=== PATIENT | male | born 1970 | race Caucasian/White ===

== ENCOUNTER 2016-12-07 18:48 | Inpatient (IN) | payer MEDICARE, OTHER ==
[2016-12-07 18:55] VITALS: BP 97/53; PULSE 88; RESP 20; TEMP 98.1; O2SAT 95
[2016-12-07] MEDS ORDERED: SODIUM CHLORIDE 0.9% FLUSH 10 ML FLUSH IVF PRN (19:00)
[2016-12-07] MEDS ORDERED: HYDROmorphone HCL PF 1 MG/ML VIAL IV PUSH ONE ×2 (19:00→21:15)
[2016-12-07] MEDS ORDERED: ONDANSETRON HCL 4 MG/2 ML VIAL IV PUSH ONE (19:00)
[2016-12-07] MEDS ORDERED: BENI5TAB4 PO (19:06)
[2016-12-07] MEDS ORDERED: AMPH1TAB29 PO (19:06)
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
[2016-12-07 19:28] VITALS: RESP 20; O2SAT 90
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
[2016-12-07 19:44] LABS: BASOPHIL % 0.2 % (0.0-2.0); EOSINOPHIL # 0.1 TH/MM3 (0-0.4); EOSINOPHIL % 0.3 % (0.0-4.0); HEMATOCRIT 35.6 % (39.0-51.0); HEMO FLAGS DIFF FINAL; LYMPH % 9.2 % (9.0-44.0); LYMPHOCYTE # 1.6 TH/MM3 (1.0-4.8); MEAN CELL VOLUME 90.3 FL (80.0-100.0); MEAN CORPUSCULAR HEMOGLOBIN 30.5 PG (27.0-34.0); MEAN CORPUSCULAR HGB CONC 33.7 % (32.0-36.0); MONO % 5.7 % (0.0-8.0); NEUT % 84.6 % (16.0-70.0); PLATELET COUNT 272 TH/MM3 (150-450); RED BLOOD COUNT 3.94 MIL/MM3 (4.50-5.90); RED CELL DISTRIBUTION WIDTH 13.1 % (11.6-17.2); WHITE BLOOD COUNT 17.7 TH/MM3 (4.0-11.0)
[2016-12-07 19:59] LABS: BICARBONATE 21.8 MEQ/L (21.0-32.0); POTASSIUM 3.7 MEQ/L (3.5-5.1)
[2016-12-07] MEDS ORDERED: IOHEXOL 350 MG/ML 10 ML VIAL (for RAD DIAG) IVCONTRAST ONE (20:24)
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
[2016-12-07] MEDS ORDERED: SODIUM CHLOR 0.9% 1000 ML INJ 1,000 ML IV ONE (20:30)
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
[2016-12-07 20:50] VITALS: BP 118/56; PULSE 100; RESP 20; O2SAT 100
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
[2016-12-07] MEDS ORDERED: CHLORHEXIDINE GLUCONATE 2 % 1 PACK (2 CLOTHS) TOP PRN (22:00)
[2016-12-07] MEDS ORDERED: MAGNESIUM HYDROXIDE SUSP 30 ML CUP PO PRN (22:00)
[2016-12-07] MEDS ORDERED: MISCELLANEOUS NURSING INFORMATION XX SCH (22:00)
[2016-12-07] MEDS ORDERED: ONDANSETRON HCL 4 MG/2 ML VIAL IV PRN (22:00)
[2016-12-07] MEDS ORDERED: ACETAMINOPHEN 325 MG TAB PO PRN (22:00)
[2016-12-07] MEDS ORDERED: LACTATED RINGER'S 1000 ML INJ 1,000 ML IV ONE (22:00)
[2016-12-07 22:02] VITALS: BP 102/58; PULSE 103; RESP 14; O2SAT 98
[2016-12-07 23:00] VITALS: BP 117/56; PULSE 98; RESP 14; O2SAT 100
[2016-12-07 23:44] VITALS: BP 128/67; PULSE 99; RESP 17; O2SAT 99
[2016-12-07 23:44] LABS: HEMATOCRIT 33.9 % (39.0-51.0); REVIEW FLAG FINAL
[2016-12-08] VITALS (9 sets, daily range): BP systolic 106–118; BP diastolic 51–64; PULSE 82–104; RESP 15–19; TEMP 98.2–98.9; O2SAT 92–99
[2016-12-08] MEDS: HYDROmorphone HCL PF 1 MG/ML VIAL IV PUSH PRN ×4 (00:59→22:11)
[2016-12-08] MEDS: CHLORHEXIDINE GLUCONATE 2 % 1 PACK (2 CLOTHS) TOP SCH (03:37)
[2016-12-08 04:44] LABS: AUTOMATED NEUTROPHIL # 5.2 TH/MM3 (1.8-7.7); BASOPHIL % 0.2 % (0.0-2.0); EOSINOPHIL % 0.2 % (0.0-4.0); HEMATOCRIT 30.9 % (39.0-51.0); HEMO FLAGS DIFF FINAL; LYMPH % 14.4 % (9.0-44.0); MEAN CELL VOLUME 90.2 FL (80.0-100.0); MEAN CORPUSCULAR HEMOGLOBIN 29.9 PG (27.0-34.0); MEAN CORPUSCULAR HGB CONC 33.1 % (32.0-36.0); MONO % 11.2 % (0.0-8.0); PLATELET COUNT 216 TH/MM3 (150-450); RED BLOOD COUNT 3.43 MIL/MM3 (4.50-5.90); RED CELL DISTRIBUTION WIDTH 13.2 % (11.6-17.2)
[2016-12-08 04:58] LABS: BICARBONATE 27.8 MEQ/L (21.0-32.0); POTASSIUM 4.3 MEQ/L (3.5-5.1)
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
[2016-12-08] MEDS: FAMOTIDINE 20 MG TAB PO SCH ×2 (09:20→20:32)
[2016-12-08] MEDS: DOCUSATE SODIUM 100 MG CAP PO SCH ×2 (09:20→20:32)
--- NOTE | 2016-12-08 11:04 | HHI.CCPN ---
Subjective 24 Hour Review/Hospital Course 12/08/16 Patient's hemoglobin is trending down, therefore we'll maintain him in the ICU. If his hemoglobin continues to trend down well repeat pelvic CT and consider interventional radiology for pelvic angiogram and possible embolization. No large area of active extravasation exists on initial CT. He continues to have pain relieved with lying on his right side. He is cleared for weightbearing as tolerated with orthopedic surgery. Objective Vital Signs Date Time Temp Pulse Resp B/P (MAP) Pulse Ox O2 Delivery O2 Flow Rate FiO2 12/08/16 06:00 88 12/08/16 04:56 99 Nasal Cannula 2.00 12/08/16 04:00 98.9 15 107/51 (69) Intake and Output 12/08/16 12/08/16 12/08/16 07:59 15:59 23:59 Intake Total 1240 ml Output Total 1150 ml Balance 90 ml Result Diagram: 12/08/16 0340 12/08/16 0340 Imaging Last [address] 12/07/162000 Signed Impressions: Service Date/Time: Wednesday, December 07, 2016 20:23 - CONCLUSION: Negative trauma CT. Dwayne Fontenot MD Abdomen/Pelvis CT 12/07/162000 Signed Impressions: Service Date/Time: Wednesday, December 07, 2016 20:23 - CONCLUSION: Subtle nondisplaced left lower sacral fracture with extensive adjacent hematoma in the posterior and left side of the pelvis as well as the obturator foramen and musculature. Hemorrhage and inflammatory change tracks up along the right common iliac artery. Delayed images will be performed to evaluate for possible left ureter injury. This report will be addended. Dr. Alexander was notified of these findings. Dwayne Fontenot MD ADDENDUM: Delayed images were performed after approximately 30 minute delay and demonstrate large amount contrast within the bladder which is intact. The kidneys demonstrate excrete contrast and the proximal and mid ureters are well-visualized and are within normal limits. There is no extravasated contrast. The hemorrhage and inflammatory change are again noted in the pelvis. Dwayne Fontenot MD Head CT 12/07/16 6023 Signed Impressions: Service Date/Time: Wednesday, December 07, 2016 20:18 - CONCLUSION: 1. No acute hemorrhage or mass effect. 2. Air-fluid level in the right maxillary sinus. There is no evidence of fracture. Dwayne Fontenot MD Cervical Spine CT 12/07/16 6639 Signed Impressions: Service Date/Time: Wednesday, December 07, 2016 20:18 - CONCLUSION: Negative trauma CT.. Dwayne Fontenot MD Objective Remarks Large gluteal hematoma, soft, marked with a sharpie morning Exam RADIOLOGY PRACTITIONER ASSISTANT Alert and oriented no acute distress Hemodynamic/Cardiac Regular rate and rhythm, normotensive stable Pulmonary/Respiratory Clear to auscultation bilaterally Abdomen/GI Nutrition Soft, nontender, nondistended Renal/I&O Adequate urine output Hematologic Acute blood loss anemia, hemoglobin currently 10.2 Assessment and Plan Plan Patient is weightbearing as tolerated for sacral fractures and instructed to follow up with orthopedic surgery upon discharge Will maintain patient in ICU setting as his hemoglobin is trending down with large retroperitoneal hematoma Continue to trend H&H, will repeat pelvic CT if it continues to trend down Aggressive pulmonary toilet and pain control Hernesto Burroughs MD Dec 08, 2016 11:04
[2016-12-08] MEDS: MULTIVITAMIN INJ 10 ML, THIAMINE INJ 100 MG, FOLIC ACID INJ 1 MG in SODIUM CHLORID 0.9%... IV SCH (11:07)
[2016-12-08] MEDS ORDERED: DOCU1CAP39 PO (11:55)
[2016-12-08] MEDS ORDERED: MAGN400S PO (11:55)
[2016-12-08 12:24] LABS: HEMATOCRIT 27.8 % (39.0-51.0); REVIEW FLAG FINAL
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
[2016-12-08 15:00] LABS: HEMATOCRIT 28.4 % (39.0-51.0); REVIEW FLAG FINAL
[2016-12-09] VITALS (12 sets, daily range): BP systolic 117–134; BP diastolic 59–63; PULSE 83–104; RESP 11–20; TEMP 98.4–99; O2SAT 98–100
[2016-12-09] MEDS: HYDROmorphone HCL PF 1 MG/ML VIAL IV PUSH PRN ×5 (02:17→21:01)
[2016-12-09] MEDS: CHLORHEXIDINE GLUCONATE 2 % 1 PACK (2 CLOTHS) TOP SCH (04:00)
[2016-12-09 07:13] LABS: AUTOMATED NEUTROPHIL # 5.3 TH/MM3 (1.8-7.7); BASOPHIL % 0.2 % (0.0-2.0); EOSINOPHIL # 0.1 TH/MM3 (0-0.4); EOSINOPHIL % 1.2 % (0.0-4.0); HEMATOCRIT 26.4 % (39.0-51.0); HEMO FLAGS DIFF FINAL; LYMPH % 10.4 % (9.0-44.0); LYMPHOCYTE # 0.7 TH/MM3 (1.0-4.8); MEAN CELL VOLUME 90.1 FL (80.0-100.0); MEAN CORPUSCULAR HEMOGLOBIN 30.4 PG (27.0-34.0); MEAN CORPUSCULAR HGB CONC 33.7 % (32.0-36.0); NEUT % 78.2 % (16.0-70.0); PLATELET COUNT 169 TH/MM3 (150-450); RED BLOOD COUNT 2.93 MIL/MM3 (4.50-5.90); RED CELL DISTRIBUTION WIDTH 12.7 % (11.6-17.2); WHITE BLOOD COUNT 6.8 TH/MM3 (4.0-11.0)
[2016-12-09 07:36] LABS: ANION GAP 5 MEQ/L (5-15); AST (GOT) 55 U/L (15-37); BICARBONATE 29.7 MEQ/L (21.0-32.0); BLOOD UREA NITROGEN 14 MG/DL (7-18); CHLORIDE 102 MEQ/L (98-107); GLOMERULAR FILTRATION RATE 89 ML/MIN (>89); SODIUM (NA) 137 MEQ/L (136-145)
[2016-12-09 07:38] LABS: ALT (GPT) 35 U/L (12-78)
[2016-12-09 07:40] LABS: ALKALINE PHOSPHATASE 43 U/L (45-117); TOTAL BILIRUBIN ADULT 0.6 MG/DL (0.2-1.0)
[2016-12-09] MEDS ORDERED: LACTULOSE SYRUP 20 GM/30 ML CUP PO SCH (09:00)
[2016-12-09] MEDS: DOCUSATE SODIUM 100 MG CAP PO SCH ×2 (09:31→20:58)
[2016-12-09] MEDS: FAMOTIDINE 20 MG TAB PO SCH (09:31)
--- NOTE | 2016-12-09 10:54 | HHI.CCPN ---
Subjective 24 Hour Review/Hospital Course 12/08/16 Patient's hemoglobin is trending down, therefore we'll maintain him in the ICU. If his hemoglobin continues to trend down well repeat pelvic CT and consider interventional radiology for pelvic angiogram and possible embolization. No large area of active extravasation exists on initial CT. He continues to have pain relieved with lying on his right side. He is cleared for weightbearing as tolerated with orthopedic surgery. 12/09/16 Continued downtrending hemoglobin. We'll order CT abdomen and pelvis with contrast to look for arterial bleeding. Pain is better controlled and patient is ambulating. We'll transfer to floor depending on CT scan results. Objective Vital Signs Date Time Temp Pulse Resp B/P (MAP) Pulse Ox O2 Delivery O2 Flow Rate FiO2 12/09/16 06:00 93 12/09/16 04:00 99.0 20 117/60 (79) 98 12/08/16 19:00 Room Air 12/08/16 04:56 2.00 Intake and Output 12/09/16 12/09/16 12/10/16 08:00 16:00 00:00 Intake Total 240 ml Output Total 400 ml Balance -160 ml Result Diagram: 12/09/16 0633 12/09/16 0633 Objective Remarks Gluteal hematoma is evidently larger, but remains soft. Appears to be dissipating more than enlarging Exam MANAGER PRIMARY CARE Alert and oriented, no acute distress Hemodynamic/Cardiac Regular rate and rhythm, stable Pulmonary/Respiratory Clear to auscultation bilaterally Abdomen/GI Nutrition Soft, nontender, nondistended, tolerating diet Renal/I&O Adequate urine output Hematologic Stable but hemoglobin continues to drift downward Assessment and Plan Plan Continue weightbearing as tolerated for sacral fracture CT scan abdomen and pelvis today to look for arterial blush Continue PT OT and pain controlled Transfer to floor depending on CT results Hernesto Burroughs MD Dec 09, 2016 10:54
[2016-12-09] MEDS ORDERED: IOHEXOL 350 MG/ML 10 ML VIAL (for RAD DIAG) IVCONTRAST ONE (12:36)
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
[2016-12-09] MEDS: MULTIVITAMIN INJ 10 ML, THIAMINE INJ 100 MG, FOLIC ACID INJ 1 MG in SODIUM CHLORID 0.9%... IV SCH (15:16)
[2016-12-09] MEDS ORDERED: diphenhydrAMINE HCL 50 MG CAP PO PRN (20:45)
[2016-12-10] VITALS (11 sets, daily range): BP systolic 113–160; BP diastolic 63–94; PULSE 78–117; RESP 16–19; TEMP 98.5–100.8; O2SAT 92–98
[2016-12-10] MEDS: CHLORHEXIDINE GLUCONATE 2 % 1 PACK (2 CLOTHS) TOP SCH ×2 (04:00→23:43)
[2016-12-10 05:29] LABS: AUTOMATED NEUTROPHIL # 3.7 TH/MM3 (1.8-7.7); BASOPHIL % 0.3 % (0.0-2.0); EOSINOPHIL # 0.2 TH/MM3 (0-0.4); EOSINOPHIL % 3.2 % (0.0-4.0); HEMATOCRIT 26.2 % (39.0-51.0); HEMO FLAGS DIFF FINAL; LYMPH % 20.2 % (9.0-44.0); LYMPHOCYTE # 1.1 TH/MM3 (1.0-4.8); MEAN CELL VOLUME 90.3 FL (80.0-100.0); MEAN CORPUSCULAR HEMOGLOBIN 30.3 PG (27.0-34.0); MEAN CORPUSCULAR HGB CONC 33.5 % (32.0-36.0); MONO % 10.1 % (0.0-8.0); NEUT % 66.2 % (16.0-70.0); PLATELET COUNT 187 TH/MM3 (150-450); WHITE BLOOD COUNT 5.6 TH/MM3 (4.0-11.0)
[2016-12-10 05:39] LABS: ANION GAP 5 MEQ/L (5-15); AST (GOT) 62 U/L (15-37); BICARBONATE 33.3 MEQ/L (21.0-32.0); BLOOD UREA NITROGEN 11 MG/DL (7-18); CHLORIDE 100 MEQ/L (98-107); GLOMERULAR FILTRATION RATE 87 ML/MIN (>89); POTASSIUM 3.9 MEQ/L (3.5-5.1); SODIUM (NA) 138 MEQ/L (136-145)
[2016-12-10 05:40] LABS: ALT (GPT) 37 U/L (12-78)
[2016-12-10 05:43] LABS: ALKALINE PHOSPHATASE 44 U/L (45-117); TOTAL BILIRUBIN ADULT 0.5 MG/DL (0.2-1.0)
[2016-12-10] MEDS: DOCUSATE SODIUM 100 MG CAP PO SCH ×2 (08:19→20:46)
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
[2016-12-11] VITALS: BP 114/55; PULSE 107; RESP 16; TEMP 100.4; O2SAT 94
[2016-12-11 01:31] VITALS: O2SAT 95
[2016-12-11 03:30] VITALS: BP 128/74; PULSE 95; RESP 16; TEMP 99; O2SAT 95
[2016-12-11 06:05] LABS: AUTOMATED NEUTROPHIL # 2.2 TH/MM3 (1.8-7.7); BASOPHIL % 0.4 % (0.0-2.0); EOSINOPHIL # 0.2 TH/MM3 (0-0.4); EOSINOPHIL % 3.9 % (0.0-4.0); HEMATOCRIT 25.2 % (39.0-51.0); HEMO FLAGS DIFF FINAL; LYMPH % 24.5 % (9.0-44.0); MEAN CELL VOLUME 90.3 FL (80.0-100.0); MEAN CORPUSCULAR HEMOGLOBIN 30.7 PG (27.0-34.0); MEAN CORPUSCULAR HGB CONC 33.9 % (32.0-36.0); MONO % 16.2 % (0.0-8.0); PLATELET COUNT 218 TH/MM3 (150-450); RED BLOOD COUNT 2.79 MIL/MM3 (4.50-5.90); RED CELL DISTRIBUTION WIDTH 12.9 % (11.6-17.2)
[2016-12-11 06:32] LABS: ANION GAP 4 MEQ/L (5-15); AST (GOT) 55 U/L (15-37); BLOOD UREA NITROGEN 9 MG/DL (7-18); CHLORIDE 102 MEQ/L (98-107); GLOMERULAR FILTRATION RATE 73 ML/MIN (>89); POTASSIUM 3.8 MEQ/L (3.5-5.1); SODIUM (NA) 137 MEQ/L (136-145)
[2016-12-11 06:35] LABS: ALKALINE PHOSPHATASE 42 U/L (45-117); ALT (GPT) 42 U/L (12-78); TOTAL BILIRUBIN ADULT 0.7 MG/DL (0.2-1.0)
[2016-12-11] MEDS ORDERED: BISACODYL EC 5 MG TABEC PO ONE (07:15)
[2016-12-11] MEDS ORDERED: BISACODYL 10 MG SUPP RECTAL ONE (07:15)
[2016-12-11] MEDS ORDERED: WALKER WHEELS/F1 MIS (07:22)
[2016-12-11 08:00] VITALS: BP 135/84; PULSE 90; RESP 16; TEMP 98.5; O2SAT 95
[2016-12-11] MEDS: DOCUSATE SODIUM 100 MG CAP PO SCH (08:25)
[2016-12-11] MEDS ORDERED: PERC5TAB12 PO (11:28)
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
== END 2016-12-11 14:56 | disposition home or self-care (01) | DRG 965 ==
LOC: NEPE 18:48 → NEDA 21:19 → N03A 12-08 00:48 → N06B 12-10 14:25
PROVIDERS: ADMIT Surgery; ATTEND Surgery
DX: S32.10XA Unspecified fracture of sacrum, initial encounter for closed fracture (principal); S36.899A Unspecified injury of other intra-abdominal organs, initial encounter; S06.9X9A Unspecified intracranial injury with loss of consciousness of unspecified duration, initial encounter; S32.2XXA Fracture of coccyx, initial encounter for closed fracture; Y93.19 Activity, other involving water and watercraft; Y92.838 Other recreation area as the place of occurrence of the external cause; I10 Essential (primary) hypertension; M54.5 Low back pain; R10.9 Unspecified abdominal pain; Y90.2 Blood alcohol level of 40-59 mg/100 ml
CPT/HCPCS: 70450; 71010; 71260; 72125; 72170; 74177; 80048; 80053; 80307; 85014; 85018; 85025; 87641; 94150; 96361; 96374; 96375; J1170; J2405; J3411; J7030; J7040; J7120; Q0163; Q9967